=== PATIENT | male | born 1960 | race Native Hawaiian/Other Pacific Islander ===

== ENCOUNTER 2021-09-03 13:59 | Inpatient (IN) | payer OTHER ==
[~2021-09-03] VITALS: Ht 175.3 cm; Wt 73.9 kg
[2021-09-03 16:35] VITALS: BP 124/73
[2021-09-03] MEDS ORDERED: TRIAMCINOLONE 0.1% 60 ML LOTION TP PRN (17:30)
[2021-09-03] MEDS ORDERED: DEXTROSE 50%-WATER 25 GM/50 ML SYRINGE IVP PRN (17:30)
[2021-09-03] MEDS ORDERED: MELATONIN 3 MG TABLET PO PRN (17:30)
[2021-09-03] MEDS ORDERED: CARISOPRODOL 350 MG TABLET PO PRN (17:30)
[2021-09-03] MEDS ORDERED: ACETAMINOPHEN 325 MG TABLET PO PRN (17:30)
[2021-09-03 17:46] LABS: GLUCOMETER DEV NAME(LOC) 2WR.2B; GLUCOSE,POINT OF CARE 163 MG/DL (70-110)
[2021-09-03] MEDS: INSULIN LISPRO 100 UNITS/ML SQ PRN ×2 (18:13→20:43)
[2021-09-03] MEDS ORDERED: CARBOXYMETHYLCELLULOSE SODIUM 0.4 ML OPHTHALMIC SOLUTION [PF] OU PRN (19:30)
[2021-09-03] MEDS: ETHYL ALCOHOL 62% ANTISEPTIC NASAL SANITIZER 0.6 ML AMPUL NASAL SCH (20:31)
[2021-09-03] MEDS: DOCUSATE SODIUM 100 MG CAPSULE PO SCH (20:31)
[2021-09-03] MEDS: ATORVASTATIN CALCIUM 40 MG TABLET PO SCH (20:32)
[2021-09-03] MEDS: SENNA 187 MG TABLET PO SCH (20:32)
[2021-09-03] MEDS: DOXYCYCLINE HYCLATE 100 MG TABLET PO SCH (20:32)
[2021-09-03 21:21] LABS: GLUCOMETER DEV NAME(LOC) 2WR.1C; GLUCOSE,POINT OF CARE 153 MG/DL (70-110)
[2021-09-04 01:50] VITALS: BP 130/70
[2021-09-04 06:41] LABS: GLUCOMETER DEV NAME(LOC) 2WR.2B; GLUCOSE,POINT OF CARE 143 MG/DL (70-110)
[2021-09-04 06:50] LABS: BASOPHILS % (AUTO) 0.3 % (0.0-2.0); EOSINOPHILS % (AUTO) 0.7 % (1.0-6.0); HEMATOCRIT 44.2 % (41-53); LYMPHOCYTES # (AUTO) 1.9 K/uL (1.0-4.8); LYMPHOCYTES % (AUTO) 21.6 % (22.0-44.0); MEAN CORPUSCULAR HEMOGLOBIN 33.1 pg (26.0-34.0); MEAN CORPUSCULAR HGB CONC 33.9 G/dL (31.0-37.0); MEAN CORPUSCULAR VOLUME 97 fL (80-100); MONOCYTES # (AUTO) 0.9 K/uL (0.1-1.0); MONOCYTES % (AUTO) 10.1 % (2.0-9.0); NEUTROPHILS % (AUTO) 67.3 % (40.0-70.0); PLATELET COUNT (AUTO) 269 K/uL (150-450); RED BLOOD CELL COUNT(AUTO) 4.53 MIL/uL (4.50-5.90)
[2021-09-04 07:05] LABS: ALANINE AMINOTRANSFERASE 73 U/L (12-78); ALBUMIN 3.4 g/dL (3.4-5.0); ALKALINE PHOSPHATASE 125 U/L (46-116); ANION GAP 8 mmol/L (8-16); ASPARTATE AMINOTRANSFERASE 28 U/L (15-37); BILIRUBIN,TOTAL 0.8 mg/dL (0.1-1.0); CALCIUM, TOTAL 9.4 mg/dL (8.8-10.5); CARBON DIOXIDE 29 mmol/L (22-29); CHLORIDE 101 mmol/L (98-107); CREATININE 1.06 mg/dL (0.60-1.30); GLOMERULAR FILTR. RATE CALC > 60 mL/min (>60); GLUCOSE,RANDOM 136 mg/dL (70-110); POTASSIUM 4.3 mmol/L (3.5-5.1); SODIUM SERUM 138 mmol/L (136-145); TOTAL PROTEIN, SERUM 7.2 g/dL (6.4-8.2); UREA NITROGEN, BLOOD 20 mg/dL (7-18)
[2021-09-04] MEDS: MetFORMIN HCL 500 MG ER TABLET PO SCH (08:03)
[2021-09-04] MEDS: DILTIAZEM HCL CD 240 MG ER CAPSULE PO SCH (08:04)
[2021-09-04] MEDS: ASPIRIN 81 MG CHEWABLE TABLET PO SCH (08:04)
[2021-09-04] MEDS: ETHYL ALCOHOL 62% ANTISEPTIC NASAL SANITIZER 0.6 ML AMPUL NASAL SCH ×2 (08:04→21:23)
[2021-09-04] MEDS: DOCUSATE SODIUM 100 MG CAPSULE PO SCH ×2 (08:05→21:23)
[2021-09-04] MEDS: LISINOPRIL 20 MG TABLET PO SCH (08:05)
[2021-09-04] MEDS: POLYETHYLENE GLYCOL 3350 17 GM PACKET PO SCH (08:05)
[2021-09-04] MEDS: DOXYCYCLINE HYCLATE 100 MG TABLET PO SCH ×2 (08:05→21:24)
[2021-09-04] MEDS: INSULIN LISPRO 100 UNITS/ML SQ PRN ×4 (08:18→21:30)
[2021-09-04] MEDS ORDERED: CETIRIZINE HCL 10 MG TABLET PO PRN (09:00)
[2021-09-04] MEDS ORDERED: CETIRIZINE HCL 10 MG TABLET PO SCH (09:00)
[2021-09-04] MEDS: LIDOCAINE 5% TRANSDERMAL PATCH TD SCH (09:00)
[2021-09-04 09:29] VITALS: BP 123/77
[2021-09-04] MEDS ORDERED: DEXTROSE 50%-WATER 25 GM/50 ML SYRINGE IVP PRN (13:15)
[2021-09-04 13:26] LABS: GLUCOMETER DEV NAME(LOC) 2WR.1C; GLUCOSE,POINT OF CARE 151 MG/DL (70-110)
[2021-09-04 16:30] VITALS: BP 133/64
[2021-09-04 18:00] LABS: GLUCOMETER DEV NAME(LOC) 2WR.1C; GLUCOSE,POINT OF CARE 147 MG/DL (70-110)
[2021-09-04 20:30] VITALS: BP 98/62
[2021-09-04] MEDS: -LIDODERM PATCH NOTE- MISC SCH (21:23)
[2021-09-04] MEDS: ATORVASTATIN CALCIUM 40 MG TABLET PO SCH (21:23)
[2021-09-04] MEDS: SENNA 187 MG TABLET PO SCH (21:24)
[2021-09-04 21:41] LABS: GLUCOMETER DEV NAME(LOC) 2WR.2B; GLUCOSE,POINT OF CARE 160 MG/DL (70-110)
[2021-09-05 06:19] VITALS: BP 108/66
[2021-09-05 06:27] LABS: CHOL/HDL RATIO 2.8 (4.2-7.3)
[2021-09-05 06:31] LABS: GLUCOMETER DEV NAME(LOC) 2WR.1C; GLUCOSE,POINT OF CARE 137 MG/DL (70-110)
[2021-09-05] MEDS: MetFORMIN HCL 500 MG ER TABLET PO SCH (07:23)
[2021-09-05 07:30] VITALS: BP 95/64
[2021-09-05] MEDS: LISINOPRIL 20 MG TABLET PO SCH (09:00)
[2021-09-05 09:01] VITALS: BP 100/65
[2021-09-05] MEDS: ETHYL ALCOHOL 62% ANTISEPTIC NASAL SANITIZER 0.6 ML AMPUL NASAL SCH ×2 (09:32→20:40)
[2021-09-05] MEDS: ASPIRIN 81 MG CHEWABLE TABLET PO SCH (09:33)
[2021-09-05] MEDS: DOCUSATE SODIUM 100 MG CAPSULE PO SCH ×2 (09:34→20:40)
[2021-09-05] MEDS: DILTIAZEM HCL CD 240 MG ER CAPSULE PO SCH (09:34)
[2021-09-05] MEDS: POLYETHYLENE GLYCOL 3350 17 GM PACKET PO SCH (09:35)
[2021-09-05] MEDS: LIDOCAINE 5% TRANSDERMAL PATCH TD SCH (09:36)
[2021-09-05] MEDS: DOXYCYCLINE HYCLATE 100 MG TABLET PO SCH (09:37)
[2021-09-05 15:45] LABS: GLUCOMETER DEV NAME(LOC) 2WR.2B; GLUCOSE,POINT OF CARE 129 MG/DL (70-110)
[2021-09-05 16:30] VITALS: BP 124/64
[2021-09-05 19:11] LABS: GLUCOMETER DEV NAME(LOC) 2WR.1C; GLUCOSE,POINT OF CARE 133 MG/DL (70-110)
[2021-09-05] MEDS: -LIDODERM PATCH NOTE- MISC SCH (20:40)
[2021-09-05] MEDS: SENNA 187 MG TABLET PO SCH (20:40)
[2021-09-05] MEDS: ATORVASTATIN CALCIUM 40 MG TABLET PO SCH (20:40)
[2021-09-05] MEDS: INSULIN LISPRO 100 UNITS/ML SQ PRN (20:54)
[2021-09-05 21:21] LABS: GLUCOMETER DEV NAME(LOC) 2WR.1C; GLUCOSE,POINT OF CARE 212 MG/DL (70-110)
[2021-09-06 01:28] VITALS: BP 107/77
[2021-09-06 06:31] LABS: GLUCOMETER DEV NAME(LOC) 2WR.1C; GLUCOSE,POINT OF CARE 148 MG/DL (70-110)
[2021-09-06] MEDS: ETHYL ALCOHOL 62% ANTISEPTIC NASAL SANITIZER 0.6 ML AMPUL NASAL SCH ×2 (08:04→20:09)
[2021-09-06] MEDS: LIDOCAINE 5% TRANSDERMAL PATCH TD SCH (08:04)
[2021-09-06] MEDS: POLYETHYLENE GLYCOL 3350 17 GM PACKET PO SCH (08:05)
[2021-09-06] MEDS: DILTIAZEM HCL CD 240 MG ER CAPSULE PO SCH (08:05)
[2021-09-06] MEDS: DOCUSATE SODIUM 100 MG CAPSULE PO SCH ×2 (08:05→20:10)
[2021-09-06] MEDS: LISINOPRIL 20 MG TABLET PO SCH (08:06)
[2021-09-06] MEDS: MetFORMIN HCL 500 MG ER TABLET PO SCH (08:06)
[2021-09-06] MEDS: ASPIRIN 81 MG CHEWABLE TABLET PO SCH (08:06)
[2021-09-06] MEDS: INSULIN LISPRO 100 UNITS/ML SQ PRN ×3 (08:10→17:18)
[2021-09-06 09:07] VITALS: BP 123/64
[2021-09-06 13:08] LABS: GLUCOMETER DEV NAME(LOC) 2WR.1C; GLUCOSE,POINT OF CARE 185 MG/DL (70-110)
[2021-09-06 16:36] VITALS: BP 106/65
[2021-09-06 19:11] LABS: GLUCOMETER DEV NAME(LOC) 2WR.2B; GLUCOSE,POINT OF CARE 143 MG/DL (70-110)
[2021-09-06] MEDS: SENNA 187 MG TABLET PO SCH (20:10)
[2021-09-06] MEDS: ATORVASTATIN CALCIUM 40 MG TABLET PO SCH (20:10)
[2021-09-06] MEDS: -LIDODERM PATCH NOTE- MISC SCH (20:11)
[2021-09-06 21:56] LABS: GLUCOMETER DEV NAME(LOC) 2WR.2B; GLUCOSE,POINT OF CARE 137 MG/DL (70-110)
[2021-09-07 05:35] VITALS: BP 118/71
[2021-09-07 06:01] LABS: GLUCOMETER DEV NAME(LOC) 2WR.2B; GLUCOSE,POINT OF CARE 132 MG/DL (70-110)
[2021-09-07] MEDS: MetFORMIN HCL 750 MG ER TABLET PO SCH (07:29)
[2021-09-07] MEDS: ETHYL ALCOHOL 62% ANTISEPTIC NASAL SANITIZER 0.6 ML AMPUL NASAL SCH ×2 (08:34→20:41)
[2021-09-07] MEDS: POLYETHYLENE GLYCOL 3350 17 GM PACKET PO SCH (08:35)
[2021-09-07] MEDS: DOCUSATE SODIUM 100 MG CAPSULE PO SCH ×2 (08:35→20:40)
[2021-09-07] MEDS: DILTIAZEM HCL CD 240 MG ER CAPSULE PO SCH (08:35)
[2021-09-07] MEDS: LISINOPRIL 20 MG TABLET PO SCH (08:35)
[2021-09-07] MEDS: LIDOCAINE 5% TRANSDERMAL PATCH TD SCH (08:36)
[2021-09-07] MEDS: ASPIRIN 81 MG CHEWABLE TABLET PO SCH (08:43)
[2021-09-07 09:07] VITALS: BP 114/71
[2021-09-07 12:40] LABS: GLUCOMETER DEV NAME(LOC) 2WR.1C; GLUCOSE,POINT OF CARE 121 MG/DL (70-110)
[2021-09-07 16:01] VITALS: BP 109/66
[2021-09-07 17:51] LABS: GLUCOMETER DEV NAME(LOC) 2WR.2B; GLUCOSE,POINT OF CARE 128 MG/DL (70-110)
[2021-09-07] MEDS: SENNA 187 MG TABLET PO SCH (20:39)
[2021-09-07] MEDS: FAMOTIDINE 20 MG TABLET PO SCH (20:39)
[2021-09-07] MEDS: -LIDODERM PATCH NOTE- MISC SCH (20:40)
[2021-09-07] MEDS: ATORVASTATIN CALCIUM 40 MG TABLET PO SCH (20:40)
[2021-09-07] MEDS: APIXABAN 5 MG TABLET PO SCH (20:40)
[2021-09-07 21:31] LABS: GLUCOMETER DEV NAME(LOC) 2WR.2B; GLUCOSE,POINT OF CARE 139 MG/DL (70-110)
[2021-09-08 06:13] VITALS: BP 110/70
[2021-09-08 06:46] LABS: GLUCOMETER DEV NAME(LOC) 2WR.2B; GLUCOSE,POINT OF CARE 132 MG/DL (70-110)
[2021-09-08] MEDS: LISINOPRIL 20 MG TABLET PO SCH (07:57)
[2021-09-08] MEDS: MetFORMIN HCL 750 MG ER TABLET PO SCH (07:57)
[2021-09-08] MEDS: ETHYL ALCOHOL 62% ANTISEPTIC NASAL SANITIZER 0.6 ML AMPUL NASAL SCH ×2 (07:57→21:02)
[2021-09-08] MEDS: DILTIAZEM HCL CD 240 MG ER CAPSULE PO SCH (07:58)
[2021-09-08] MEDS: FAMOTIDINE 20 MG TABLET PO SCH ×2 (07:58→21:02)
[2021-09-08] MEDS: APIXABAN 5 MG TABLET PO SCH ×2 (07:58→21:02)
[2021-09-08] MEDS: ASPIRIN 81 MG CHEWABLE TABLET PO SCH (07:58)
[2021-09-08] MEDS: LIDOCAINE 5% TRANSDERMAL PATCH TD SCH (07:59)
[2021-09-08] MEDS: POLYETHYLENE GLYCOL 3350 17 GM PACKET PO SCH (07:59)
[2021-09-08] MEDS: DOCUSATE SODIUM 100 MG CAPSULE PO SCH ×2 (07:59→21:02)
[2021-09-08 09:27] VITALS: BP 109/69
[2021-09-08 12:41] LABS: GLUCOMETER DEV NAME(LOC) 2WR.2B; GLUCOSE,POINT OF CARE 127 MG/DL (70-110)
[2021-09-08 16:05] VITALS: BP 118/68
[2021-09-08] MEDS: INSULIN LISPRO 100 UNITS/ML SQ PRN (16:43)
[2021-09-08 19:11] LABS: GLUCOMETER DEV NAME(LOC) 2WR.2B; GLUCOSE,POINT OF CARE 151 MG/DL (70-110)
[2021-09-08] MEDS: -LIDODERM PATCH NOTE- MISC SCH (21:02)
[2021-09-08] MEDS: ATORVASTATIN CALCIUM 40 MG TABLET PO SCH (21:02)
[2021-09-08] MEDS: SENNA 187 MG TABLET PO SCH (21:02)
[2021-09-08 22:46] LABS: GLUCOMETER DEV NAME(LOC) 2WR.2B; GLUCOSE,POINT OF CARE 107 MG/DL (70-110)
[2021-09-09 01:30] VITALS: BP 101/54
[2021-09-09 06:41] LABS: GLUCOMETER DEV NAME(LOC) 2WR.1C; GLUCOSE,POINT OF CARE 137 MG/DL (70-110)
[2021-09-09] MEDS: MetFORMIN HCL 750 MG ER TABLET PO SCH (09:15)
[2021-09-09] MEDS: ETHYL ALCOHOL 62% ANTISEPTIC NASAL SANITIZER 0.6 ML AMPUL NASAL SCH ×2 (09:15→20:52)
[2021-09-09] MEDS: LISINOPRIL 20 MG TABLET PO SCH (09:16)
[2021-09-09] MEDS: POLYETHYLENE GLYCOL 3350 17 GM PACKET PO SCH (09:16)
[2021-09-09] MEDS: FAMOTIDINE 20 MG TABLET PO SCH ×2 (09:16→20:52)
[2021-09-09] MEDS: ASPIRIN 81 MG CHEWABLE TABLET PO SCH (09:16)
[2021-09-09] MEDS: DILTIAZEM HCL CD 240 MG ER CAPSULE PO SCH (09:16)
[2021-09-09] MEDS: DOCUSATE SODIUM 100 MG CAPSULE PO SCH ×2 (09:16→20:52)
[2021-09-09] MEDS: APIXABAN 5 MG TABLET PO SCH ×2 (09:16→20:52)
[2021-09-09] MEDS: LIDOCAINE 5% TRANSDERMAL PATCH TD SCH (09:17)
[2021-09-09 10:17] VITALS: BP 112/67
[2021-09-09 12:46] LABS: GLUCOMETER DEV NAME(LOC) 2WR.1C; GLUCOSE,POINT OF CARE 132 MG/DL (70-110)
[2021-09-09 16:01] VITALS: BP 91/50
[2021-09-09 20:06] LABS: GLUCOMETER DEV NAME(LOC) 2WR.1C; GLUCOSE,POINT OF CARE 98 MG/DL (70-110)
[2021-09-09] MEDS: ATORVASTATIN CALCIUM 40 MG TABLET PO SCH (20:52)
[2021-09-09] MEDS: SENNA 187 MG TABLET PO SCH (20:52)
[2021-09-09] MEDS: -LIDODERM PATCH NOTE- MISC SCH (20:52)
[2021-09-09 22:21] LABS: GLUCOMETER DEV NAME(LOC) 2WR.1C; GLUCOSE,POINT OF CARE 115 MG/DL (70-110)
[2021-09-10 00:25] VITALS: BP 114/69
[2021-09-10 06:26] LABS: GLUCOMETER DEV NAME(LOC) 2WR.1C; GLUCOSE,POINT OF CARE 126 MG/DL (70-110)
[2021-09-10 07:10] VITALS: BP 105/56
[2021-09-10] MEDS: MetFORMIN HCL 750 MG ER TABLET PO SCH (07:51)
[2021-09-10] MEDS: ASPIRIN 81 MG CHEWABLE TABLET PO SCH (07:51)
[2021-09-10] MEDS: DOCUSATE SODIUM 100 MG CAPSULE PO SCH ×2 (07:51→20:33)
[2021-09-10] MEDS: ETHYL ALCOHOL 62% ANTISEPTIC NASAL SANITIZER 0.6 ML AMPUL NASAL SCH ×2 (07:51→20:33)
[2021-09-10] MEDS: FAMOTIDINE 20 MG TABLET PO SCH ×2 (07:52→20:33)
[2021-09-10] MEDS: POLYETHYLENE GLYCOL 3350 17 GM PACKET PO SCH (07:52)
[2021-09-10] MEDS: APIXABAN 5 MG TABLET PO SCH ×2 (07:53→20:33)
[2021-09-10] MEDS: LIDOCAINE 5% TRANSDERMAL PATCH TD SCH (07:54)
[2021-09-10 08:00] VITALS: BP 120/68
[2021-09-10] MEDS: DILTIAZEM HCL CD 240 MG ER CAPSULE PO SCH (08:26)
[2021-09-10] MEDS: LISINOPRIL 20 MG TABLET PO SCH (08:26)
[2021-09-10] MEDS ORDERED: ERGOCALCIFEROL (VIT D2) 50,000 UNITS [1,250 MCG] CAPSULE PO SCH (09:00)
[2021-09-10 15:41] LABS: GLUCOMETER DEV NAME(LOC) 2WR.1C; GLUCOSE,POINT OF CARE 130 MG/DL (70-110)
[2021-09-10 16:01] VITALS: BP 102/70
[2021-09-10] MEDS: INSULIN LISPRO 100 UNITS/ML SQ PRN (17:47)
[2021-09-10 19:51] LABS: GLUCOMETER DEV NAME(LOC) 2WR.1C; GLUCOSE,POINT OF CARE 152 MG/DL (70-110)
[2021-09-10] MEDS: ATORVASTATIN CALCIUM 40 MG TABLET PO SCH (20:32)
[2021-09-10] MEDS: SENNA 187 MG TABLET PO SCH (20:33)
[2021-09-10] MEDS: -LIDODERM PATCH NOTE- MISC SCH (20:35)
[2021-09-11 03:00] VITALS: BP 111/54
[2021-09-11 05:26] LABS: GLUCOMETER DEV NAME(LOC) 2WR.1C; GLUCOSE,POINT OF CARE 135 MG/DL (70-110)
[2021-09-11 06:17] LABS: GLUCOMETER DEV NAME(LOC) 2WR.1C; GLUCOSE,POINT OF CARE 139 MG/DL (70-110)
[2021-09-11 07:45] VITALS: BP 104/67
[2021-09-11] MEDS: DILTIAZEM HCL CD 240 MG ER CAPSULE PO SCH (07:49)
[2021-09-11] MEDS: MetFORMIN HCL 750 MG ER TABLET PO SCH (07:49)
[2021-09-11] MEDS: ASPIRIN 81 MG CHEWABLE TABLET PO SCH (07:50)
[2021-09-11] MEDS: DOCUSATE SODIUM 100 MG CAPSULE PO SCH ×2 (07:50→20:11)
[2021-09-11] MEDS: APIXABAN 5 MG TABLET PO SCH ×2 (07:50→20:12)
[2021-09-11] MEDS: FAMOTIDINE 20 MG TABLET PO SCH ×2 (07:50→20:12)
[2021-09-11] MEDS: LISINOPRIL 20 MG TABLET PO SCH (07:51)
[2021-09-11] MEDS: ETHYL ALCOHOL 62% ANTISEPTIC NASAL SANITIZER 0.6 ML AMPUL NASAL SCH ×2 (07:51→20:07)
[2021-09-11] MEDS: POLYETHYLENE GLYCOL 3350 17 GM PACKET PO SCH (07:52)
[2021-09-11] MEDS: LIDOCAINE 5% TRANSDERMAL PATCH TD SCH (07:53)
[2021-09-11 12:56] LABS: GLUCOMETER DEV NAME(LOC) 2WR.1C; GLUCOSE,POINT OF CARE 119 MG/DL (70-110)
[2021-09-11 16:45] VITALS: BP 115/56
[2021-09-11 19:41] LABS: GLUCOMETER DEV NAME(LOC) 2WR.1C; GLUCOSE,POINT OF CARE 121 MG/DL (70-110)
[2021-09-11] MEDS: -LIDODERM PATCH NOTE- MISC SCH (20:07)
[2021-09-11] MEDS: SENNA 187 MG TABLET PO SCH (20:11)
[2021-09-11] MEDS: ATORVASTATIN CALCIUM 40 MG TABLET PO SCH (20:12)
[2021-09-11] MEDS ORDERED: ASPI-1450 PO (20:24)
[2021-09-11] MEDS ORDERED: APIX5TAB PO (20:24)
[2021-09-11] MEDS ORDERED: ATOR40TA28 PO (20:25)
[2021-09-11] MEDS ORDERED: DILT240C96 PO (20:33)
[2021-09-11] MEDS ORDERED: ERGO500054 PO (20:34)
[2021-09-11] MEDS ORDERED: DOCU-385 PO (20:35)
[2021-09-11] MEDS ORDERED: FAMO20 PO (20:39)
[2021-09-11] MEDS ORDERED: LISI-894 PO (20:39)
[2021-09-11] MEDS ORDERED: METF750T57 PO (20:40)
[2021-09-11] MEDS ORDERED: POLY17PO47 PO (21:02)
[2021-09-11] MEDS ORDERED: LIDO700A15 TP (21:03)
[2021-09-12 02:00] VITALS: BP 104/55
[2021-09-12 05:16] LABS: GLUCOMETER DEV NAME(LOC) 2WR.1C; GLUCOSE,POINT OF CARE 127 MG/DL (70-110)
[2021-09-12 06:36] LABS: GLUCOMETER DEV NAME(LOC) 2WR.2B; GLUCOSE,POINT OF CARE 91 MG/DL (70-110)
[2021-09-12] MEDS: MetFORMIN HCL 750 MG ER TABLET PO SCH (08:00)
[2021-09-12] MEDS: POLYETHYLENE GLYCOL 3350 17 GM PACKET PO SCH (08:00)
[2021-09-12] MEDS: LIDOCAINE 5% TRANSDERMAL PATCH TD SCH (08:00)
[2021-09-12] MEDS: DOCUSATE SODIUM 100 MG CAPSULE PO SCH ×2 (08:00→20:29)
[2021-09-12] MEDS: ETHYL ALCOHOL 62% ANTISEPTIC NASAL SANITIZER 0.6 ML AMPUL NASAL SCH ×2 (08:00→20:28)
[2021-09-12] MEDS: APIXABAN 5 MG TABLET PO SCH ×2 (08:01→20:28)
[2021-09-12] MEDS: ASPIRIN 81 MG CHEWABLE TABLET PO SCH (08:01)
[2021-09-12] MEDS: LISINOPRIL 20 MG TABLET PO SCH (08:01)
[2021-09-12] MEDS: DILTIAZEM HCL CD 240 MG ER CAPSULE PO SCH (08:01)
[2021-09-12] MEDS: FAMOTIDINE 20 MG TABLET PO SCH ×2 (08:01→20:29)
[2021-09-12 09:07] VITALS: BP 114/70
[2021-09-12 16:23] VITALS: BP 113/61
[2021-09-12] MEDS: ATORVASTATIN CALCIUM 40 MG TABLET PO SCH (20:28)
[2021-09-12] MEDS: SENNA 187 MG TABLET PO SCH (20:29)
[2021-09-12] MEDS: -LIDODERM PATCH NOTE- MISC SCH (20:31)
[2021-09-12 23:10] VITALS: BP 112/76
[2021-09-13 06:11] VITALS: BP 106/75
[2021-09-13 06:46] LABS: GLUCOMETER DEV NAME(LOC) 2WR.2B; GLUCOSE,POINT OF CARE 129 MG/DL (70-110)
[2021-09-13 08:10] VITALS: BP 140/92
[2021-09-13] MEDS: ETHYL ALCOHOL 62% ANTISEPTIC NASAL SANITIZER 0.6 ML AMPUL NASAL SCH ×2 (08:31→20:55)
[2021-09-13] MEDS: MetFORMIN HCL 750 MG ER TABLET PO SCH (08:31)
[2021-09-13] MEDS: ASPIRIN 81 MG CHEWABLE TABLET PO SCH (08:32)
[2021-09-13] MEDS: APIXABAN 5 MG TABLET PO SCH ×2 (08:33→20:52)
[2021-09-13] MEDS: POLYETHYLENE GLYCOL 3350 17 GM PACKET PO SCH (08:33)
[2021-09-13] MEDS: DILTIAZEM HCL CD 240 MG ER CAPSULE PO SCH (08:33)
[2021-09-13] MEDS: DOCUSATE SODIUM 100 MG CAPSULE PO SCH ×2 (08:33→20:52)
[2021-09-13] MEDS: LISINOPRIL 20 MG TABLET PO SCH (08:34)
[2021-09-13] MEDS: FAMOTIDINE 20 MG TABLET PO SCH ×2 (08:34→20:54)
[2021-09-13] MEDS: LIDOCAINE 5% TRANSDERMAL PATCH TD SCH (08:35)
[2021-09-13 10:01] VITALS: BP 140/92
[2021-09-13] MEDS ORDERED: APIX5TAB PO (10:01)
[2021-09-13] MEDS ORDERED: ASPI81 PO (10:01)
[2021-09-13] MEDS ORDERED: ERGO500054 PO (10:02)
[2021-09-13] MEDS ORDERED: LISI-894 PO (10:02)
[2021-09-13] MEDS ORDERED: DILT-72 PO (10:02)
[2021-09-13] MEDS ORDERED: SENN-187 PO (10:02)
[2021-09-13] MEDS ORDERED: ATOR40TA71 PO (10:02)
[2021-09-13] MEDS ORDERED: FAMO20 PO (10:02)
[2021-09-13] MEDS ORDERED: LIDO700A30 TD (10:02)
[2021-09-13] MEDS ORDERED: METF750T57 PO (10:02)
[2021-09-13] MEDS ORDERED: POLY17PO47 PO (10:02)
[2021-09-13] MEDS ORDERED: DOCU-385 PO (10:02)
[2021-09-13 17:03] VITALS: BP 112/85
[2021-09-13] MEDS: ATORVASTATIN CALCIUM 40 MG TABLET PO SCH (20:52)
[2021-09-13] MEDS: SENNA 187 MG TABLET PO SCH (20:55)
[2021-09-13] MEDS: -LIDODERM PATCH NOTE- MISC SCH (20:56)
[2021-09-14] VITALS: BP 105/61
[2021-09-14 06:46] LABS: GLUCOMETER DEV NAME(LOC) 2WR.1C; GLUCOSE,POINT OF CARE 120 MG/DL (70-110)
[2021-09-14] MEDS: POLYETHYLENE GLYCOL 3350 17 GM PACKET PO SCH (07:48)
[2021-09-14] MEDS: MetFORMIN HCL 750 MG ER TABLET PO SCH (07:48)
[2021-09-14] MEDS: APIXABAN 5 MG TABLET PO SCH ×2 (07:49→20:38)
[2021-09-14] MEDS: DILTIAZEM HCL CD 240 MG ER CAPSULE PO SCH (07:49)
[2021-09-14] MEDS: ASPIRIN 81 MG CHEWABLE TABLET PO SCH (07:49)
[2021-09-14] MEDS: LISINOPRIL 20 MG TABLET PO SCH (07:49)
[2021-09-14] MEDS: DOCUSATE SODIUM 100 MG CAPSULE PO SCH ×2 (07:49→20:38)
[2021-09-14] MEDS: FAMOTIDINE 20 MG TABLET PO SCH ×2 (07:49→20:39)
[2021-09-14] MEDS: ETHYL ALCOHOL 62% ANTISEPTIC NASAL SANITIZER 0.6 ML AMPUL NASAL SCH ×2 (07:50→20:39)
[2021-09-14] MEDS: LIDOCAINE 5% TRANSDERMAL PATCH TD SCH (07:50)
[2021-09-14 08:01] VITALS: BP 121/73
[2021-09-14 09:15] VITALS: BP 130/60
[2021-09-14 16:01] VITALS: BP 100/56
[2021-09-14 20:31] VITALS: BP 105/65
[2021-09-14] MEDS: ATORVASTATIN CALCIUM 40 MG TABLET PO SCH (20:38)
[2021-09-14] MEDS: SENNA 187 MG TABLET PO SCH (20:38)
[2021-09-14] MEDS: -LIDODERM PATCH NOTE- MISC SCH (20:39)
[2021-09-15 06:36] LABS: GLUCOMETER DEV NAME(LOC) 2WR.1C; GLUCOSE,POINT OF CARE 123 MG/DL (70-110)
[2021-09-15 08:19] VITALS: BP 115/73
[2021-09-15] MEDS: POLYETHYLENE GLYCOL 3350 17 GM PACKET PO SCH (09:00)
[2021-09-15] MEDS: ETHYL ALCOHOL 62% ANTISEPTIC NASAL SANITIZER 0.6 ML AMPUL NASAL SCH (09:00)
[2021-09-15] MEDS: MetFORMIN HCL 750 MG ER TABLET PO SCH (09:00)
[2021-09-15] MEDS: DILTIAZEM HCL CD 240 MG ER CAPSULE PO SCH (09:01)
[2021-09-15] MEDS: ASPIRIN 81 MG CHEWABLE TABLET PO SCH (09:01)
[2021-09-15] MEDS: APIXABAN 5 MG TABLET PO SCH (09:02)
[2021-09-15] MEDS: FAMOTIDINE 20 MG TABLET PO SCH (09:02)
[2021-09-15] MEDS: DOCUSATE SODIUM 100 MG CAPSULE PO SCH (09:02)
[2021-09-15] MEDS: LISINOPRIL 20 MG TABLET PO SCH (09:03)
[2021-09-15] MEDS: LIDOCAINE 5% TRANSDERMAL PATCH TD SCH (09:04)
== END 2021-09-15 14:45 | disposition home health service (06) | DRG 57 ==
LOC: 2WR 16:25
PROVIDERS: ADMIT Physical Medicine & Rehabilitation; ATTEND Physical Medicine & Rehabilitation
DX: I69.351 Hemiplegia and hemiparesis following cerebral infarction affecting right dominant side (principal); L03.114 Cellulitis of left upper limb; R13.10 Dysphagia, unspecified; E11.9 Type 2 diabetes mellitus without complications; I10 Essential (primary) hypertension; I48.91 Unspecified atrial fibrillation; K21.9 Gastro-esophageal reflux disease without esophagitis; E78.5 Hyperlipidemia, unspecified; F32.A Depression, unspecified; L40.9 Psoriasis, unspecified; I69.393 Ataxia following cerebral infarction; Z79.01 Long term (current) use of anticoagulants; I69.391 Dysphagia following cerebral infarction; I69.322 Dysarthria following cerebral infarction
CPT/HCPCS: 80053; 80061; 82962; 85025; 87081; 92507; 92523; 97110; 97112; 97116; 97150; 97162; 97166; 97530; 97535; 99366